=== PATIENT | male | born 1955 | race Caucasian/White ===

== ENCOUNTER 2017-04-13 23:17 | Emergency (ER) | payer MEDICARE, MEDICAID ==
[~2017-04-13] VITALS: Ht 165.1 cm; Wt 82.0 kg
[2017-04-13 23:18] VITALS: BP 157/90; PULSE 81; RESP 18; TEMP 97.5; O2SAT 99
[2017-04-14] MEDS ORDERED: AMLO10TA2 PO (02:27)
[2017-04-14] MEDS ORDERED: CLOP75TA PO (02:27)
[2017-04-14] MEDS ORDERED: ALLO100T PO (02:27)
[2017-04-14] MEDS ORDERED: ATOR80TA45 PO (02:27)
[2017-04-14 03:38] VITALS: BP 135/73; PULSE 70; RESP 14; O2SAT 97
--- NOTE | 2017-04-14 05:11 | RADRPT ---
EXAM DATE/TIME: 04/14/2017 04:46 [place] COMPARISON: No previous studies available for comparison. INDICATIONS : Testicular pain on the left. MEDICAL HISTORY : Hypertension. Stroke. SURGICAL HISTORY : None. ENCOUNTER: Initial ACUITY: 2 days PAIN SCORE: 3/10 LOCATION: Bilateral testicles. MEASUREMENTS: RIGHT TESTICLE: 4.1 x 3.0 x 2.0cm LEFT TESTICLE: 3.8 x 2.6 x 1.9cm FINDINGS: RIGHT TESTICLE: Homogeneous echotexture without intra or extratesticular mass. Blood flow is symmetric and within no rmal limits. No hydrocele or varicocele. There is cyst in the region of the epididymal head measurin g 4.4 x 3.2 x 2.3 cm. LEFT TESTICLE: Homogeneous echotexture without intra or extratesticular mass. Blood flow is symmetric and within no rmal limits. No hydrocele or varicocele. Epididymis is within normal limits. SCROTUM: Within normal limits. CONCLUSION: 1. No abnormality is identified to explain the left testicle pain. 2. There is a large right epididymal head cyst. Remi Willis MD on April 14, 2017 at 5:07 Board Certified Radiologist. This report was verified electronically.
--- NOTE | 2017-04-14 05:17 | PD ---
HPI Chief Complaint: Complaint Time Seen by Provider: 04:21 Travel History International Travel<30 days: No Contact w/Intl Traveler<30days: No Traveled to known affect area: No History of Present Illness HPI 61-year-old male presents to the emergency department for complaint of bilateral testicular pain with increasing mass to the right testicle. Patient states he has had the mass for approximately 11 years but is never had it evaluated and now he decides to come at this time because he feels like the mass is getting larger. No fever no chills no nausea no vomiting or dysuria frequency urgency or penile discharge. Patient is not sexually active. Patient is on a blood thinner. Patient states that he has noticed increased swelling of the right testicle mass and became concerned. Patient states that he has never had this evaluated and patient has moved to the area to care for his mother and while he is here in the area he decided he needed to be evaluated. PFSH Past Medical History Narrative Medical CVA Plavix aspirin asthma scrotal mass; no tobacco use no alcohol use; nursing notes reviewed Hx Anticoagulant Therapy: Yes (PLAVIX AND ASA) Asthma: Yes Cerebrovascular Accident: Yes Diminished Hearing: No Tetanus Vaccination: Unknown Influenza Vaccination: No Past Surgical History Surgical History: No Previous Surgery Social History Alcohol Use: No Tobacco Use: No Substance Use: No Allergies-Medications (Allergen,Severity, Reaction): Coded Allergies: No Known Allergies (Verified Allergy, Unknown, 04/14/17) Reported Meds & Prescriptions Reported Meds & Active Scripts Active Reported Clopidogrel (Clopidogrel Bisulfate) 75 Mg Tab 75 Mg PO DAILY Allopurinol 100 Mg Tab 100 Mg PO DAILY Atorvastatin (Atorvastatin Calcium) 80 Mg Tab 80 Mg PO HS Amlodipine (Amlodipine Besylate) 10 Mg Tab 10 Mg PO DAILY Review of Systems Except as stated in HPI: all other systems reviewed are Neg General / Constitutional: No: Fever HENT: No: Congestion Cardiovascular: No: Chest Pain or Discomfort Respiratory: No: Shortness of Breath Gastrointestinal: No: Nausea, Vomiting, Abdominal Pain Genitourinary: Positive: Other, No: Dysuria Musculoskeletal: No: Myalgias, Arthralgias Skin: No Rash Neurologic: No: Weakness Psychiatric: No: Anxiety Hematologic/Lymphatic: No: Lymph Node Enlargement Physical Exam Narrative GENERAL: Well-developed well-nourished male no acute distress or respiratory distress SKIN: Warm and dry. HEAD: Normocephalic. EYES: No scleral icterus. No injection or drainage. NECK: Supple, trachea midline. No JVD or lymphadenopathy. CARDIOVASCULAR: Regular rate and rhythm without murmurs, gallops, or rubs. RESPIRATORY: Breath sounds equal bilaterally. No accessory muscle use. GASTROINTESTINAL: Abdomen soft, non-tender, nondistended. : Circumcised male with bilaterally descended testicles with palpable mass to the right testicle with mild tenderness no hernia on exam left testicle mild tenderness without mass or swelling bilateral cremasteric reflex is present. No penile discharge. No lesions. MUSCULOSKELETAL: No cyanosis, or edema. BACK: Nontender without obvious deformity. No CVA tenderness. Data Data Last Documented VS Vital Signs Date Time Temp Pulse Resp B/P (MAP) Pulse Ox O2 Delivery O2 Flow Rate FiO2 04/14/17 03:38 70 14 135/73 (93) 97 Room Air 04/13/17 23:18 97.5 Orders Orders Us Testicles W Doppler (04/14/17 ) [facility] Medical Decision Making Medical Screen Exam Complete: Yes Emergency Medical Condition: Yes Medical Record Reviewed: Yes Differential Diagnosis Scrotal mass, hydrocele, cyst, spermatocele, epididymoorchitis, malignancy Narrative Course Ultrasound of the testicle performed with good blood flow to both testicles and right epididymal head cyst Diagnosis Primary Impression: Cyst of epididymis determined by ultrasound Referrals: Urologist call for appointment Patient Instructions: General Instructions Additional Instructions: Follow-up with urologist on-call urologist Dr. Messina Return to the emergency department for any concerns or change in condition Continue current medications as currently prescribed Med/Other Pt SpecificInfo: No Change to Meds Disposition: 01 DISCHARGE HOME Condition: Stable Tatiana Rizzo MD Apr 14, 2017 05:17
== END 2017-04-14 05:54 | disposition home or self-care (01) ==
LOC: NEPC 23:17
DX: N50.3 Cyst of epididymis (principal); Z86.73 Personal history of transient ischemic attack (TIA), and cerebral infarction without residual deficits; J45.909 Unspecified asthma, uncomplicated; Z79.01 Long term (current) use of anticoagulants; Z79.82 Long term (current) use of aspirin
CPT/HCPCS: 76870; 93975; 99284